=== PATIENT | male | born 1995 ===

== ENCOUNTER 2018-09-09 11:03 | Emergency (ER) | payer SELFPAY ==
[2018-09-09 11:32] VITALS: BP 128/95
--- NOTE | 2018-09-09 12:06 | UC ---
FLU HPI - HPI Summary HPI Summary: 22 year old male, initially from [place] who travelled to the [place] 2 days ago to work at [employer] presents iwth fever, low grade x 2 days. tactile only, no thermometer. + mild body aches, no rigors, + mild cough. achy/ tired feeling. no abdominal pain, GI sytmpoms. no headache, neck stiffness. H/O Hep A ~ 4 years ago, resolved. no other medial conditions, taking multiple herbal supplements given by his Uncle, an herbalist doctor per patient. - History of Current Complaint Chief Complaint: UCGeneralIllness Stated Complaint: HIGH FEVER Time Seen by Provider: 09/09/18 11:18 Hx Obtained From: Patient, Family/Supervisor Accounts Receivable - friend Onset/Duration: Sudden Onset, Lasting Days - x 2 days Severity Currently: None Pain Intensity: 0 Pain Scale Used: 0-10 Numeric Associated Signs & Symptoms: Positive: Fever - low grade x 2 days, treated yesterday with paracetamol, Myalgia, Cough Related Hx: Possible Flu/Infectious Exposure - flight, - Allergy/Home Medications Allergies/Adverse Reactions: Allergies Allergy/AdvReac Type Severity Reaction Status Date / Time No Known Allergies Allergy Verified 09/09/18 11:32 Home Medications: Home Medications Annabhedisinduram 1 tab PO DAILY 09/09/18 [History Confirmed 09/09/18] Paracitamol 1 tab PO ONCE PRN 09/09/18 [History Confirmed 09/09/18] Shaddharanam 2 tab PO TID 09/09/18 [History Confirmed 09/09/18] PMH/Surg Hx/FS Hx/Imm Hx Previously Healthy: Yes - Surgical History Surgical History: None - Social History Alcohol Use: Occasionally Substance Use Type: None Smoking Status (MU): Never Smoked Tobacco Review of Systems All Other Systems Reviewed And Are Negative: Yes Constitutional: Positive: Fever, Fatigue Respiratory: Positive: Cough Is Patient Immunocompromised?: No Physical Exam Triage Information Reviewed: Yes Appearance: Well-Appearing, No Pain Distress, Well-Nourished Vital Signs: Initial Vital Signs Temp 100.6 F 09/09/18 11:25 Pulse 113 09/09/18 11:25 Resp 18 09/09/18 11:25 BP 128/95 09/09/18 11:25 Pulse Ox 99 09/09/18 11:25 Vital Signs Reviewed: Yes Eyes: Positive: Conjunctiva Clear ENT: Positive: Hearing grossly normal, Pharynx normal, TMs normal, Uvula midline. Negative: Pharyngeal erythema, Nasal congestion, TM bulging, TM dull, TM red, Tonsillar swelling, Tonsillar exudate, Sinus tenderness Neck: Positive: Supple, Nontender, No Lymphadenopathy. Negative: Nuchal Rigidity, Enlarged Nodes @ Respiratory: Positive: Chest non-tender, Lungs clear, Normal breath sounds, No respiratory distress, No accessory muscle use. Negative: Respiratory distress, Decreased breath sounds, Crackles, Rhonchi, Stridor, Wheezing Cardiovascular: Positive: RRR, No Murmur Abdomen Description: Positive: Nontender, No Organomegaly. Negative: CVA Tenderness (R), CVA Tenderness (L), Distended, Guarding, Hepatomegaly, Splenomegaly - non-tender Musculoskeletal: Positive: Strength Intact, ROM Intact - UE, LEs Neurological: Positive: Alert Psychological Exam: Normal Skin Exam: Normal Flu Course/Dx - Course Course Of Treatment: blood work drawn for LFT, CBC, malaria. Follow up within 24 hours. Likely viral syndrome due to symptoms, conservative OTC treatments. - Differential Dx/Diagnosis Provider Diagnosis: Viral syndrome Discharge - Sign-Out/Discharge Documenting (check all that apply): Patient Departure All imaging exams completed and their final reports reviewed: No Studies - Discharge Plan Condition: Good Disposition: HOME Patient Education Materials: Upper Respiratory Infection (DC) Referrals: No Primary Care Phys,NOPCP [Primary Care Provider] - Additional Instructions: - Blood work drawn to rule out malaria, infection. Follow up within 24 hours - Return with worsening symptoms or no improvement within 2-3 days - over the counter medications for symptoms such as motrin/ ibuprofen or tylenol / acetaminophen - Increase fluid intake - Healthy diet. - Billing Disposition and Condition Condition: GOOD Disposition: Home
[2018-09-09 19:14] LABS: Albumin 4.3 g/dL (3.2-5.2); Calcium 9.1 mg/dL (8.6-10.3); Potassium 4.5 mmol/L (3.5-5.0); Total Bilirubin 1.4 mg/dL (0.2-1.0)
[2018-09-09 19:20] LABS: Albumin/Globulin Ratio 1.4 (1-3); EGFR African American 147.7 (>60); Total Protein 7.3 g/dL (6.4-8.9)
[2018-09-09 19:21] LABS: ABS Eosinophils 0.1 10^3/ul (0-0.6); ABS Lymphocytes 1.2 10^3/ul (1.0-4.8); ABS Monocytes 0.8 10^3/ul (0-0.8); Eosinophil % 1.6 %; Hematocrit 49 % (42-52); Hemoglobin 17.1 g/dL (14.0-18.0); Lymphocyte % 23.8 %; Mean Corpuscular HGB Conc 35 g/dL (31-36); Mean Corpuscular Hemoglobin 30 pg (27-31); Mean Corpuscular Volume 85 fL (80-94); Mean Platelet Volume 9.5 fL (7.4-10.4); Nucleated Red Blood Cells % 0.2; Platelet Count 173 10^3/uL (150-450); Red Blood Count 5.71 10^6 /uL (4.18-5.48); Red Cell Distribution Width 13 % (10-15); White Blood Count 5.1 10^3/uL (3.5-10.8)
[2018-09-10 07:07] LABS: RBC Parasite Smear No Parasites Seen (No Parasite)
== END 2018-09-09 12:20 | disposition home or self-care (01) ==
LOC: UCEAST 11:03
DX: B34.9 Viral infection, unspecified (principal)
CPT/HCPCS: 36415; 80053; 85025; 87015; 87207; 99201; G0463